=== PATIENT | female | born 1955 ===

== ENCOUNTER 2023-01-12 10:49 | Day surgery (SDC) | payer MEDICARE ==
[~2023-01-12] VITALS: Ht 160 cm; Wt 96.6 kg
[2023-01-12 11:44] VITALS: BP 144/75; PULSE 85; TEMP 97.6
[2023-01-12] MEDS ORDERED: ELIQUIS 5MG PO (11:52)
[2023-01-12] MEDS ORDERED: EUTHYROX100 MCG PO (11:53)
[2023-01-12] MEDS ORDERED: CORDARONE200 MG/TAB PO (11:53)
[2023-01-12 11:54] LABS: INR 1.5 (0.8-3.0); PROTHROMBIN TIME 16.6 SECONDS (9.7-12.8)
[2023-01-12] MEDS ORDERED: CATAPRES 0.1MG0.1 MG PO (11:54)
[2023-01-12] MEDS ORDERED: CRESTOR20 MG PO (11:54)
[2023-01-12] MEDS ORDERED: HCTZ12.5TAB PO (11:54)
[2023-01-12] MEDS ORDERED: GLUCOPHAGE1000 MG PO (11:55)
[2023-01-12] MEDS ORDERED: GLUCOTROL10 MG PO (11:55)
[2023-01-12 11:56] LABS: CALCIUM 9.5 mg/dL (8.4-10.2); CREATININE, serum 0.83 mg/dL (0.57-1.11); POTASSIUM 3.9 mmol/L (3.5-4.5)
[2023-01-12] MEDS ORDERED: NORVASC 10MG10 MG PO (11:56)
[2023-01-12] MEDS ORDERED: DIOVAN 160MG160 MG PO (11:56)
[2023-01-12 12:16] LABS: THYROID STIMULATING HORMONE 3.627 uIU/mL (0.350-4.940)
[2023-01-12 13:45] VITALS: BP 125/76; PULSE 67
[2023-01-12 14:00] VITALS: BP 117/66; PULSE 60
[2023-01-12 14:15] VITALS: BP 117/69; PULSE 65
[2023-01-12 14:30] VITALS: BP 118/71; PULSE 58
[2023-01-12 14:45] VITALS: BP 133/76; PULSE 74
--- NOTE | 2023-01-12 15:46 | NUR ---
Pt ambulated to [facility] scheduled for a Cardioversion and a BC. IV started, labs drawn. EKG done. Consent form for the procedure signed. Post procedure pt recovered in [facility]11 for about an hr. Offered something to eat and drink, pt was okay at the moment. Discharge education and information given to the pt and brother. Pt exited the unit by wheelchair to brothers car.
== END 2023-01-12 15:02 | disposition home or self-care (01) ==
LOC: COL.CAR 10:49
PROVIDERS: Internal Medicine Interventional Cardiology
DX: I48.0 Paroxysmal atrial fibrillation (principal); R94.39 Abnormal result of other cardiovascular function study; F10.11 Alcohol abuse, in remission; Z79.01 Long term (current) use of anticoagulants
CPT/HCPCS: J2704; J7030